=== PATIENT | male | born 1975 ===

== ENCOUNTER 2024-05-13 20:07 | Emergency (ER) | payer BC ==
[2024-05-13] MEDS: Ketorolac 30 MG/ML SDV IM ONE (21:57)
[2024-05-13] MEDS: Acetaminophen 500 MG Tab PO ONE (21:57)
== END 2024-05-13 23:43 | disposition home or self-care (01) ==
LOC: MW.ED 20:07
DX: S92.415A Nondisplaced fracture of proximal phalanx of left great toe, initial encounter for closed fracture (principal); S90.32XA Contusion of left foot, initial encounter; M79.89 Other specified soft tissue disorders; R03.0 Elevated blood-pressure reading, without diagnosis of hypertension; Z79.899 Other long term (current) drug therapy; Z75.8 Other problems related to medical facilities and other health care; X50.9XXA Other and unspecified overexertion or strenuous movements or postures, initial encounter
CPT/HCPCS: 73630; 96372; 99283; A9270; J1885; 99284